=== PATIENT | male | born 1970 | race African-American/Black ===

== ENCOUNTER → 2019-02-22 | Outpatient (CLI) | payer OTHER ==
[~2019-02-22] MED LIST: AMLO10TA8 PO; ASPI-650 PO; CARV12.543 PO; CLON0.2T PO; HYDR-3237 PO; HYDR-3343 PO; HYDR100T25 PO; HYDR25TA6 PO; LISI-170 PO; LISI40TA PO; METO-95 PO; NICO-486 TD; OXYC5TAB2 PO; POTA10TA PO
== END | disposition home or self-care (01) ==
LOC: CFH 11:16
PROVIDERS: ATTEND Internal Medicine Cardiovascular Disease
DX: I08.8 Other rheumatic multiple valve diseases (principal); I70.1 Atherosclerosis of renal artery; I10 Essential (primary) hypertension; F17.200 Nicotine dependence, unspecified, uncomplicated
CPT/HCPCS: 93306

== ENCOUNTER → 2019-02-26 | Outpatient (CLI) | payer OTHER ==
[~2019-02-26] MED LIST changes: +REGADENOSON 0.4 MG/5 ML SYRINGE ONE
== END | disposition home or self-care (01) ==
LOC: CFH 08:41
PROVIDERS: ATTEND Internal Medicine Cardiovascular Disease
DX: I25.9 Chronic ischemic heart disease, unspecified (principal); I70.1 Atherosclerosis of renal artery; I10 Essential (primary) hypertension
CPT/HCPCS: 78452; 93017; A9502; J2785